=== PATIENT | male | born 1965 | race Caucasian/White ===

== ENCOUNTER → 2018-12-28 | Outpatient (CLI) | payer MEDICARE ==
[~2018-12-28] MED LIST: DEPAKOTE ER 50500 MG PO; DILANTIN 100MG100 MG; DILANTIN 100MG100 MG PO; SEROQUEL 1100 MG/TAB PO; TENORMIN 2525 MG/TAB PO; VIMPAT100 MG PO; ZANTAC 7575 MG
== END ==
LOC: COL.RAD 12:05
DX: N48.6 Induration penis plastica (principal)